=== PATIENT | female | born 1970 | race Caucasian/White ===

== ENCOUNTER 2021-07-20 09:19 | Emergency (ER) | payer OTHER ==
[~2021-07-20] VITALS: Ht 167.6 cm; Wt 86.2 kg
[2021-07-20] MEDS ORDERED: LIPITOR 20 MG T20 M1 PO (09:27)
[2021-07-20] MEDS ORDERED: CYMBALTA60 MG PO (09:27)
[2021-07-20] MEDS ORDERED: CEPHALEXIN500 MG PO (11:25)
[2021-07-20] MEDS ORDERED: BACTRIM DS TAB1 EACH PO (11:25)
[2021-07-20 11:31] VITALS: BP 170/88
== END 2021-07-20 11:32 | disposition home or self-care (01) ==
LOC: M.ERS 09:19
DX: S31.149A Puncture wound of abdominal wall with foreign body, unspecified quadrant without penetration into peritoneal cavity, initial encounter (principal); L03.311 Cellulitis of abdominal wall; F32.9 Major depressive disorder, single episode, unspecified; Z90.49 Acquired absence of other specified parts of digestive tract; Z79.899 Other long term (current) drug therapy; W22.8XXA Striking against or struck by other objects, initial encounter; Y93.89 Activity, other specified; Y92.89 Other specified places as the place of occurrence of the external cause; Y99.8 Other external cause status

== ENCOUNTER 2021-07-31 06:03 | Emergency (ER) | payer OTHER ==
[~2021-07-31] VITALS: Ht 167.6 cm; Wt 86.2 kg
[~2021-07-31 06:03] MED LIST: BACTRIM DS TAB1 EACH PO; CEPHALEXIN500 MG PO; CYMBALTA60 MG PO; LIPITOR 20 MG T20 M1 PO
[2021-07-31 06:26] LABS: URINE BILIRUBIN NEGATIVE (Negative); URINE BLOOD 3+ (Negative); URINE CLARITY CLEAR; URINE COLOR YELLOW; URINE GLUCOSE-RANDOM NEGATIVE (Negative); URINE KETONES NEGATIVE (Negative); URINE LEUKOCYTES-REFLEX NEGATIVE (Negative); URINE NITRITE-REFLEX NEGATIVE (Negative); URINE PROTEIN NEGATIVE (Negative); URINE SPECIFIC GRAVITY >= 1.030 (1.005-1.030); URINE UROBILINOGEN 0.2 E.U./dl (0.2-1.0)
[2021-07-31 06:32] LABS: AMP/METHAMP Negative (Negative); BARBITURATES Negative (Negative); BENZODIAZEPINES Negative (Negative); COCAINE Negative (Negative); METHADONE Negative (Negative); OPIATES Negative (Negative); PCP Negative (Negative); THC Negative (Negative)
[2021-07-31 06:34] LABS: BACTERIA-REFLEX 1-9 Few /HPF (None Seen); CASTS None Seen /LPF (None Seen); CRYSTALS None Seen /LPF (None Seen); MUCUS 0-3 Light strn/LPF (None Seen); SQUAMOUS 4-10 Moderate /LPF (0-3); URINE WBC-REFLEX 0-5 Rare /HPF (0-5)
[2021-07-31 06:34] LABS: HEMATOCRIT 36.6 % (37.0-47.0); MCH 27.9 pg (26.0-34.0); MCHC 32.9 g/dL (28.0-37.0); MCV 84.9 fL (80.0-100.0); MPV 8.5 fl. (7.2-11.1); RBC 4.31 mil/uL (4.20-5.00); RDW-CV 13.7 % (10.5-14.5); WBC 13.8 thou/uL (4.0-11.0)
[2021-07-31 06:41] LABS: CALCIUM 8.9 mg/dL (8.5-10.1); CREATININE 0.6 mg/dL (0.6-1.3); POTASSIUM 3.8 mmol/L (3.5-5.1)
[2021-07-31 06:51] LABS: ALBUMIN 3.7 g/dL (3.4-5.0); TOTAL BILIRUBIN 0.4 mg/dL (<0.1-1.0); TOTAL PROTEIN 7.4 g/dL (6.4-8.2)
[2021-07-31] MEDS ORDERED: CIPROFLOXACIN500 M1 PO (08:02)
[2021-07-31] MEDS ORDERED: FLOMAX0.4 MG PO (08:02)
[2021-07-31] MEDS ORDERED: PERCOCET PO (08:02)
[2021-07-31 08:05] VITALS: BP 137/78
== END 2021-07-31 08:05 | disposition home or self-care (01) ==
LOC: M.ERS 06:03
PROVIDERS: Personal Emergency Response Attendant
DX: N13.2 Hydronephrosis with renal and ureteral calculous obstruction (principal); F32.9 Major depressive disorder, single episode, unspecified; Z87.442 Personal history of urinary calculi; Z90.49 Acquired absence of other specified parts of digestive tract; Z79.899 Other long term (current) drug therapy

== ENCOUNTER → 2021-08-09 | Outpatient (CLI) | payer OTHER ==
[~2021-08-09] MED LIST changes: +CIPROFLOXACIN500 M1 PO; +FLOMAX0.4 MG PO; +IBUPROFEN 200200 M1 PO; +PERCOCET PO
== END ==
LOC: M.LAB 09:43
PROVIDERS: ATTEND Surgery
DX: Z01.812 Encounter for preprocedural laboratory examination (principal); Z20.822 Contact with and (suspected) exposure to COVID-19

== ENCOUNTER → 2021-08-10 | Day surgery (SDC) | payer OTHER ==
--- NOTE | 2021-08-10 10:51 | OP ---
[address] [address] OPERATIVE REPORT Name: MONTSE KO Room: [facility].#: [id number] Admission: 08/10/21 Attend Phys: Sarah Mckenna DO Discharge: Date of : 72 Report #: [id number] THIS REPORT FOR: cc: Janis Go Stefany RNP Brock, Christie M. DO ~ DATE OF SURGERY: 08/10/2021 PREPROCEDURE DIAGNOSIS: Foreign body in the right lower quadrant. POSTPROCEDURE DIAGNOSIS: Foreign body in the right lower quadrant. FINDINGS: Needle visualized on ultrasound in the right lower quadrant. A 5-inch sewing needle was extracted. SURGEON: Sarah Mckenna DO CO-SURGEON: Jeff Willis, PGY2 TRIAL EXAMINER: Arianna Vanegas MS4 PROCEDURE PERFORMED: Exploration of the right lower quadrant with extraction of foreign body. ANESTHESIA: Local MAC. ESTIMATED BLOOD LOSS: 5 SPECIMENS: Sewing needle. COMPLICATIONS: None. CONDITION: Stable. DISPOSITION: PACU to home. HISTORY OF PRESENT ILLNESS: The patient is a very pieter 51-year-old female who presented to my office with complaint of a sewing needle in the tissues of her right lower quadrant. She reports that she was working on a sewing project at home and lost track of her sewing needle. Shortly thereafter, she then noticed redness and pain in her right lower quadrant and could feel a lump. She presented to the ER where she underwent a CT scan which visualized the entire sewing needle in the tissues of the right lower quadrant. On physical exam, she did have some erythema and cellulitis and there was an area of induration, but I was not able to directly palpate the sewing needle itself. She was then consented for exploration of the right lower quadrant [place] [address] OPERATIVE REPORT Name: MONTSE KO Room: [facility]#: [id number] Admission: 08/10/21 Attend Phys: Sarah Mckenna DO Discharge: Date of : 72 Report #: [id number] body with possible use of fluoroscopy. Risks and benefits were discussed in detail. The patient agreed to proceed. DESCRIPTION OF PROCEDURE: The patient was brought to the operating room. She stayed supine on the operating room table. SCDs were placed on bilateral lower extremities. Ancef was given perioperative. Local MAC sedation was induced by anesthesia without difficulty. Ultrasound was utilized to visualize the right lower quadrant and I was able to clearly visualize the sewing needle in the right lower quadrant and identified the area closest to the skin. This area was marked. Right lower quadrant was then prepped and draped in the standard sterile fashion. Timeout was performed to verify the patient and procedure. 10 mL of 0.5% Marcaine were used to anesthetize the area. A 2 cm incision was made over the area of our anoop, then dissected down through the subcutaneous tissues using a combination of blunt and cautery dissection. Then, using palpation, we carefully felt around until the tip of the needle could be identified. It was quite sharp, so care was taken to avoid injuring ourselves. We were finally able to dissect the needle free from the surrounding tissue and grasped it with a Carole clamp and completely extracted the entirety of the 5-inch sewing needle. It was handed off for pathology. Hemostasis was assured within our wound. Wound was closed in a layered fashion using deep and superficial stitches of 3-0 Vicryl in an inverted interrupted fashion. Skin wound was closed with a running 4-0 Monocryl. A total of 20 mL of 0.5% Marcaine were used to anesthetize the wound. Wound was then cleansed and covered with Dermabond. The patient was allowed to awaken from MAC sedation and was transported to the recovery room with no further difficulties. Counts were correct at the conclusion of the case. <ELECTRONICALLY SIGNED> By: Sarah Mckenna DO 08/10/21 1051 [id number] [id number] Mckenna DO /fracisco
--- NOTE | 2021-08-17 13:08 | PATH ---
[address] [address] PATHOLOGY RPT PROCEDURE Name: CARMEN CARRINGTON Room: [facility].#: [id number] Admission: 08/10/21 Date of : 72 Discharge: Report #: [id number] Path Case #: [id number] [facility] Accession Number: [id number] . 01 Material submitted: . abdomen - FOREIGN BODY RLQ OF ABDOMEN. Modifiers: RLQ . 01 Clinical history: . FOREIGN BODY IN SOFT TISSUE . 02 Diagnosis: Gross diagnosis (foreign body): - Foreign body (needle) identified. (KEEGAN/db; 08/17/2021) LBQ 08/17/2021 1046 Local . 02 Electronically signed: . Olivier Gary MD, Pathologist NPI- [id number] . 01 Gross description: . The specimen is received fresh in a container labelled, "Carmen Carrington, foreign body remove RLQ abdomen" and consists of a silver to black-metallic maria elena (3.8 cm in length by less than 0.1 cm diameter) with one pointed end and a slender, linear hole (0.3 cm in diameter) at the opposite end. The specimen is consistent with a sewing needle. No additional soft tissue is received. This specimen is for gross examination only and a photograph is taken. (DOUGLAS; 08/11/2021) DKA/DKA 08/17/2021 1234 [facility] . 02 Pathologist provided ICD-10: Z03.89 . 02 CPT . 137687 Specimen Comment: A courtesy copy of this report has been sent to [phone] Specimen Comment: Report sent to Performed at: [address], [place], [place] [id number] MD Kai Alvarado MD Phone: [phone] Performed at: [address] [facility] [address], [place], [place] [id number] MD Olivier Gary MD Phone: [phone]
== END | disposition home or self-care (01) ==
LOC: M.SUR 08-06 17:17
PROVIDERS: ATTEND Surgery
DX: S30.851A Superficial foreign body of abdominal wall, initial encounter (principal); Z98.890 Other specified postprocedural states; Z79.899 Other long term (current) drug therapy; X58.XXXA Exposure to other specified factors, initial encounter; Y93.89 Activity, other specified; Y92.89 Other specified places as the place of occurrence of the external cause; Y99.8 Other external cause status